=== PATIENT | female | born 1970 | race African-American/Black ===

== ENCOUNTER 2020-06-27 23:58 | Emergency (ER) | payer OTHER ==
[~2020-06-27] VITALS: Ht 165.1 cm; Wt 105.7 kg
[~2020-06-27 23:58] MED LIST: ALEVE220 M1; KEFLEX500 MG PO; NAPROSYN500 MG PO; NORCO 5-325 TA1 EACH PO
[2020-06-28] MEDS ORDERED: MEDROLDOSEPACK PO (01:16)
[2020-06-28] MEDS ORDERED: ULTRAM 50MG TAB50 MG PO (01:16)
[2020-06-28 01:59] VITALS: BP 152/88
--- NOTE | 2020-06-28 15:34 | EKG ---
[address] [address] ELECTROCARDIOGRAM REPORT Name: RUDDY PAEZ Room #: [facility]#: [id number] Admission: 06/27/20 Attend Phys: Discharge: 06/28/20 Date of : 68 Report #: [id number] [facility] ED Test Date: 2020-06-28 Test Time: 00:04:59 Pat Name: RUDDY PAEZ Department: Room: Gender: F [employer] Attendant: TOYA : 1970 Requested By: Haseeb Hdz Order Number: [id number] MD: Jh Nice Measurements Intervals [place] Rate: 65 P: 66 ND: 200 QRS: 43 QRSD: 94 T: 41 QT: 407 QTc: 424 Interpretive Statements Sinus rhythm No previous ECG available for comparison Electronically Signed On 06-28-2020 15:34:03 [employer] by Jh Nice [email or web address] <ELECTRONICALLY SIGNED> By: Jh Nice MD, [facility] 06/28/20 1534 0004 0004 Jh Nice MD, FACC /EPI
== END 2020-06-28 01:50 | disposition home or self-care (01) ==
LOC: ER 23:58
DX: M54.12 Radiculopathy, cervical region (principal); Z79.899 Other long term (current) drug therapy